=== PATIENT | female | born 1985 | race Caucasian/White ===

== ENCOUNTER → 2021-06-05 | Day surgery (SDC) | payer OTHER ==
[~2021-06-05] MED LIST: AMOXICILLIN500 MG PO; NAPROSYN500 MG PO; ZOFRAN ODT 4 MG4 MG PO
[2021-06-05 07:36] LABS: HEMOGLOBIN 13.9 gm/dl (12.3-15.3); RED BLOOD COUNT 4.67 M/UL (4.00-5.10); WHITE BLOOD COUNT 5.8 K/UL (4.5-11.0)
== END | disposition home or self-care (01) ==
LOC: OR 06:01
PROVIDERS: Obstetrics & Gynecology
DX: O00.102 Left tubal pregnancy without intrauterine pregnancy (principal); Z20.822 Contact with and (suspected) exposure to COVID-19; F17.210 Nicotine dependence, cigarettes, uncomplicated
CPT/HCPCS: 81001; 85025; 86850; 86900; 86901; C1769; J1885; J2250; J2704; J2710; J2795; J3010; J7120; U0002